=== PATIENT | female | born 1955 | race Caucasian/White ===

== ENCOUNTER 2019-01-09 01:21 | Emergency (ER) | payer OTHER ==
[~2019-01-09] VITALS: Ht 165.1 cm; Wt 54.7 kg
[2019-01-09 01:33] VITALS: Ht 165.1 cm; Wt 54.7 kg
[2019-01-09] MEDS ORDERED: ONDANSETRON 4 MG INJ IV STA (04:12)
[2019-01-09] MEDS ORDERED: SOD CHLORIDE 0.9% 1,000 ML IV STA (04:12)
[2019-01-09] MEDS ORDERED: KETOROLAC 15 MG INJ IV STA (06:58)
[2019-01-09] MEDS ORDERED: CEPH-443 PO (07:06)
--- NOTE | 2019-01-09 07:28 | ERD ---
ER Documentation Chief Complaint Chief Complaint dizziness x days; "stick to my stomach." HX urine infectn HPI This is a 63-year-old female who presents to the emergency room with lightheadedness, dizziness and a foul-smelling odor to her urine. Patient states that over the last 6 years she has had multiple infections including ur inary tract infections. She is concerned for possible bacterial infection. She denies any chest pain or shortness of breath, no abdominal pain. Symptoms are described as moderate and present for the last several days. ROS All systems reviewed and are negative except as per history of present illness. Medications Home Meds Active Scripts Cephalexin* (Keflex*) 500 Mg Capsule, 500 MG PO BID for 7 Days, CAP Prov:GARRET FREEMAN MD 01/09/19 PMhx/Soc Medical and Surgical Hx: pt denies Surgical Hx Hx Cardiac Disorders: Yes (HTN) Hx Alcohol Use: Yes Hx Substance Use: No Hx Tobacco Use: Yes Smoking Status: Current every day smoker FmHx Family History: No diabetes Physical Exam Vitals Vital Signs Date Temp Pulse Resp B/P (MAP) Pulse Ox O2 O2 Flow FiO2 Time Delivery Rate 01/09/19 87 18 143/94 100 Room Air 06:10 (110) 01/09/19 91 20 122/92 100 Room Air 04:59 (102) 01/09/19 98.0 102 18 187/110 98 01:33 (135) Physical Exam General: Well developed, well nourished, no acute distress Head: Normocephalic, atraumatic. Eyes: Pupils equally reactive, EOM intact ENT: Moist mucous membranes Neck: Supple, no lymphadenopathy Respiratory: Lungs clear bilaterally, no distress Cardiovascular: RRR, no murmurs, rubs, or gallops Abdominal: Soft, non-tender, non-distended, no peritoneal signs : Deferred MSK: No edema, no unilateral swelling, 5/5 strength Neurologic: Alert and oriented, moving all extremities, normal speech, no focal weakness, no cerebellar signs Skin: No rash Psych: Normal mood Result Diagram: 01/09/19 0519 01/09/19 0519 Results 24 hrs Laboratory Tests Test 01/09/19 05:19 White Blood Count 6.3 10^3/ul Red Blood Count 4.60 10^6/ul Hemoglobin 12.4 g/dl Hematocrit 39.2 % Mean Corpuscular Volume 85.2 fl Mean Corpuscular Hemoglobin 27.0 pg Mean Corpuscular Hemoglobin Concent 31.6 g/dl Red Cell Distribution Width 13.4 % Platelet Count 247 10^3/UL Mean Platelet Volume 10.9 fl Immature Granulocytes % 0.300 % Neutrophils % 57.5 % Lymphocytes % 32.4 % Monocytes % 7.5 % Eosinophils % 1.7 % Basophils % 0.6 % Nucleated Red Blood Cells % 0.0 /100WBC Immature Granulocytes # 0.020 10^3/ul Neutrophils # 3.6 10^3/ul Lymphocytes # 2.0 10^3/ul Monocytes # 0.5 10^3/ul Eosinophils # 0.1 10^3/ul Basophils # 0.0 10^3/ul Nucleated Red Blood Cells # 0.0 10^3/ul Urine Color YELLOW Urine Clarity CLEAR Urine pH 7.0 Urine Specific [place] 1.013 Urine Ketones NEGATIVE mg/dL Urine Nitrite NEGATIVE mg/dL Urine Bilirubin NEGATIVE mg/dL Urine Urobilinogen NEGATIVE mg/dL Urine Leukocyte Esterase 1+ Clarissa/ul Urine Microscopic RBC 1 /HPF Urine Microscopic WBC 16 /HPF Urine Bacteria FEW /HPF Urine Hemoglobin NEGATIVE mg/dL Urine Glucose NEGATIVE mg/dL Urine Total Protein NEGATIVE mg/dl Sodium Level 141 mmol/L Potassium Level 3.9 mmol/L Chloride Level 103 mmol/L Carbon Dioxide Level 33 mmol/L Anion Gap 5 Blood Urea Nitrogen 12 mg/dl Creatinine 0.88 mg/dl Est Glomerular Filtrat Rate mL/min > 60 mL/min Glucose Level 89 mg/dl Calcium Level 10.0 mg/dl Total Bilirubin 0.3 mg/dl Direct Bilirubin 0.00 mg/dl Indirect Bilirubin 0.3 mg/dl Aspartate Amino Transf (AST/SGOT) 26 IU/L Alanine Aminotransferase (ALT/SGPT) 27 IU/L Alkaline Phosphatase 80 IU/L Total Protein 7.0 g/dl Albumin 4.1 g/dl Globulin 2.90 g/dl Albumin/Globulin Ratio 1.41 Lipase 62 U/L Current Medications Medications Dose Sig/Taylor Start Time Status Last (Trade) Ordered Route PRN Stop Time Admin Dose Reason Admin Sodium 1,000 ml @ Q1H STAT 01/09/19 DC 01/09/19 Chloride 1,000 mls/hr IV 04:12 01/09/19 04:45 05:11 Ondansetron 4 mg ONCE STAT 01/09/19 DC 01/09/19 HCl (Zofran IV 04:12 01/09/19 04:45 Inj) 04:13 Ketorolac 15 mg ONCE STAT 01/09/19 DC 01/09/19 Tromethamine IV 06:58 01/09/19 07:15 (Toradol) 07:00 Procedures/MDM EKG, MONITORS, & DIAGNOSTIC IMAGING: CT brain IMPRESSION: No definite acute intracranial abnormality including no intracranial hemorrhage, mass effect or recent territorial infarct, the latter of which may initially be inapparent by CT and for which MRI is considered more sensitive. Minimal periventricular white matter hypodensity, most commonly seen on a chronic microvascular ischemic basis. Trace calcified intracranial atherosclerosis. LAB INTERPRETATION: I reviewed the laboratory testing and it shows [no evidence of acute process] other than possible early urinary tract infection MEDICAL DECISION MAKING: The patient presents with very nonspecific dizziness and malaise with only specific complaint being foul-smelling odor. Patient has had a 6-year process during which time she describes multiple urinary tract infections and bacterial infections. The patient may have underlying interstitial cystitis and needs to follow-up with a urologist. She is not regularly seeing one. The patient's dizziness seems to be more like lightheadedness rather than vertigo. She has a nonfocal neurologic exam. She does report a remote history of stroke but has no clinical signs or symptoms concerning for stroke or acute stroke process at this time. The patient was initially seen by overnight provider and laboratory testing and diagnostic imaging were ordered. ER COURSE: * Patient was given IV fluids and feeling much better. She does have a mild headache. After negative CT brain and dose of Toradol provided. * Urinalysis possibly consistent with urinary tract infection. No evidence of systemic illness, bacteremia or sepsis. The patient has no clinical signs or symptoms concerning for pyelonephritis. Patient can be started on oral antibiotic for outpatient management of acute cystitis. However the patient needs to follow-up with the primary urologist. Urine culture is been sent. CONSULTATION: [None] DISPOSITION PLAN: The patient does not have an identifiable emergent medical condition that warrants inpatient hospitalization at this time. The patient is deemed safe for discharge with outpatient follow-up. We discussed follow up with the patient's primary care doctor within 24 to 48 hours as needed. We also discussed return to the emergency room for worsening symptoms or worsening condition. Outpatient referral: Urology Discharge Medications: Keflex Departure Diagnosis: Primary Impression: UTI (urinary tract infection) Urinary tract infection type: acute cystitis Hematuria presence: without hematuria Qualified Codes: N30.00 - Acute cystitis without hematuria Additional Impression: Weakness Condition: Good Patient Instructions: Understanding Urinary Tract Infections (UTIs) Referrals: [facility] YOU HAVE RECEIVED A MEDICAL SCREENING EXAM AND THE RESULTS INDICATE THAT YOU DO NOT HAVE A CONDITION THAT REQUIRES URGENT TREATMENT IN THE EMERGENCY DEPARTMENT. FURTHER EVALUATION AND TREATMENT OF YOUR CONDITION CAN WAIT UNTIL YOU ARE SEEN IN YOUR DOCTORS OFFICE WITHIN THE NEXT 1-2 DAYS. IT IS YOUR RESPONSIBILITY TO MAKE AN APPOINTMENT FOR FOLOW-UP CARE. IF YOU HAVE A PRIMARY DOCTOR --you should call your primary doctor and schedule an appointment IF YOU DO NOT HAVE A PRIMARY DOCTOR YOU CAN CALL OUR PHYSICIAN REFERRAL HOTLINE AT IF YOU CAN NOT AFFORD TO SEE A PHYSICIAN YOU CAN CHOSE FROM THE FOLLOWING [facility] [address] [facility] [address] [facility] [facility] [place] [address] [facility] [address] [facility] [address] [facility] [facility] [address] [facility]. [facility] YOU HAVE RECEIVED A MEDICAL SCREENING EXAM AND THE RESULTS INDICATE THAT YOU DO NOT HAVE A CONDITION THAT REQUIRES URGENT TREATMENT IN THE EMERGENCY DEPARTMENT. FURTHER EVALUATION AND TREATMENT OF YOUR CONDITION CAN WAIT UNTIL YOU ARE SEEN IN YOUR DOCTORS OFFICE WITHIN THE NEXT 1-2 DAYS. IT IS YOUR RESPONSIBILITY TO MAKE AN APPOINTMENT FOR FOLOW-UP CARE. IF YOU HAVE A PRIMARY DOCTOR --you should call your primary doctor and schedule and appointment IF YOU DO NOT HAVE A PRIMARY DOCTOR YOU CAN CALL OUR PHYSICIAN REFERRAL HOTLINE AT . IF YOU CAN NOT AFFORD TO SEE A PHYSICIAN YOU CAN CHOSE FROM THE FOLLOWING REPLACED BY [facility] INSTITUTIONS[facility] [address] [place] [address] [facility] [address] [place] [address] [facility] [address] [place] [address] Additional Instructions: Call your primary care doctor TOMORROW for an appointment during the next 1 WEEK.Tell the secretary office clerk that you were referred from this facility.See the doctor sooner or return here if your condition worsens before your appointment time. GARRET FREEMAN MD Jan 09, 2019 07:28
[2019-01-09 07:35] VITALS: BP 138/90; PULSE 81; RESP 18
== END 2019-01-09 07:35 | disposition home or self-care (01) ==
LOC: E/R 01:21
DX: N30.00 Acute cystitis without hematuria (principal); I10 Essential (primary) hypertension; F17.210 Nicotine dependence, cigarettes, uncomplicated; R53.1 Weakness
CPT/HCPCS: 36415; 70450; 80053; 81001; 83690; 85025; 87086; 96374; 96375; J1885; J2405; J7030; Z7502; Z7610